=== PATIENT | female | born 1955 | race African-American/Black ===

== ENCOUNTER 2017-11-12 13:23 | Outpatient (RCR) | payer OTHER | END 2018-02-10 | disposition home or self-care (01) | LOC: WSOH | DX: M19.031 Primary osteoarthritis, right wrist (principal); M19.032 Primary osteoarthritis, left wrist; M79.641 Pain in right hand; M79.642 Pain in left hand; Z87.891 Personal history of nicotine dependence; Z79.899 Other long term (current) drug therapy ==

== ENCOUNTER 2020-07-21 11:34 | Emergency (ER) | payer MEDICARE ==
[~2020-07-21] VITALS: Ht 162.6 cm; Wt 90.0 kg
[2020-07-21 11:40] VITALS: TEMP 98.5
[2020-07-21] MEDS ORDERED: NORVASC 5MG5 MG/TAB PO (11:54)
[2020-07-21] MEDS ORDERED: PROFERRIN ES12 MG PO (11:54)
[2020-07-21] MEDS ORDERED: MASON NATURAL S1 CAP (11:55)
[2020-07-21 12:16] LABS: BASO % 0.5 % (0.0-2.0); EOS % 0.1 % (0-4.0); GRAN # 4.8 (1.4-6.5); GRAN % 63.1 % (42.2-75.2); HEMOGLOBIN 10.3 g/dl (12.5-16.0); LYMPH % 26.4 % (20.0-51.0); MEAN CELL VOLUME 78 fl (80.0-100.0); MEAN CORPUSCULAR HEMOGLOBIN 26 pg (27.0-31.0); MEAN CORPUSCULAR HGB CONC 33 g/dl (33.0-37.0); MEAN PLATELET VOLUME 10.7 fl (7.4-10.4); MONO # 0.7 (0.1-0.6); MONO % 9.5 % (1.7-9.3); PLATELET COUNT 569 K/mm3 (130-400); RED BLOOD COUNT 4.04 M/mm3 (4.10-5.30); REDCELL DISTRIBUTION WIDTH-CV 14.9 % (11.5-14.5)
[2020-07-21 12:25] LABS: HEMATOCRIT 31.6 % (37.0-47.0)
[2020-07-21 12:35] LABS: INR 1.2 (0.8-3.0); PROTHROMBIN TIME 13.3 SECONDS (9.7-12.8)
[2020-07-21 12:51] LABS: ALBUMIN 3.5 gm/dL (3.5-5.0); BILIRUBIN,TOTAL 0.5 mg/dL (0.0-1.0); CALCIUM 9.4 mg/dL (8.4-10.2); CREATININE, serum 0.73 (0.52-1.25); POTASSIUM 3.8 mmol/L (3.4-5.0); TOTAL PROTEIN 7.7 gm/dL (6.4-8.2)
[2020-07-21 15:44] VITALS: BP 134/91; PULSE 94
[2020-07-21 16:07] LABS: PERITONEAL -POLYMORPHONUCLEAR 11.8 % (0-25); PERITONEAL FLUID RBC 102000 /mm3 (0-0)
== END 2020-07-21 15:44 | disposition home or self-care (01) ==
LOC: COL.ER 11:34
PROVIDERS: Nurse Practitioner
DX: R18.8 Other ascites (principal)
CPT/HCPCS: 19804

== ENCOUNTER 2020-07-22 22:46 | Inpatient (IN) | payer MEDICARE ==
[~2020-07-22] VITALS: Ht 162.6 cm; Wt 90.0 kg
[~2020-07-22 22:46] MED LIST: MASON NATURAL S1 CAP; NORVASC 5MG5 MG/TAB PO; PROFERRIN ES12 MG PO
[2020-07-22 23:14] LABS: BASO % 0.4 % (0.0-2.0); EOS % 0.4 % (0-4.0); GRAN % 61.6 % (42.2-75.2); HEMOGLOBIN 10.9 g/dl (12.5-16.0); LYMPH # 2.4 (1.2-3.4); LYMPH % 29.5 % (20.0-51.0); MEAN CELL VOLUME 81 fl (80.0-100.0); MEAN CORPUSCULAR HEMOGLOBIN 25 pg (27.0-31.0); MEAN CORPUSCULAR HGB CONC 31 g/dl (33.0-37.0); MEAN PLATELET VOLUME 10.2 fl (7.4-10.4); MONO # 0.7 (0.1-0.6); PLATELET COUNT 582 K/mm3 (130-400); RED BLOOD COUNT 4.34 M/mm3 (4.10-5.30); REDCELL DISTRIBUTION WIDTH-CV 15.2 % (11.5-14.5)
[2020-07-22 23:33] LABS: ALBUMIN 3.5 gm/dL (3.5-5.0); BILIRUBIN,TOTAL 0.5 mg/dL (0.0-1.0); CALCIUM 9.2 mg/dL (8.4-10.2); CREATININE, serum 0.73 (0.52-1.25); POTASSIUM 3.7 mmol/L (3.4-5.0); TOTAL PROTEIN 7.5 gm/dL (6.4-8.2)
[2020-07-23] VITALS (17 sets, daily range): BP systolic 110–139; BP diastolic 60–82; PULSE 78–90; TEMP 98–98.6
--- NOTE | 2020-07-23 02:43 | NUR ---
Pt. transferred from Emergency department. Arrived to medical unit at about 0200. Pt. is A/O x4, VSS, no n/v/d. Pt. reports having no pain at this time. Pt. expresses no additional needs at this time. Call light within reach.
[2020-07-23 06:51] LABS: BASO % 0.4 % (0.0-2.0); EOS % 0.4 % (0-4.0); GRAN # 4.3 (1.4-6.5); GRAN % 61.3 % (42.2-75.2); LYMPH # 1.9 (1.2-3.4); LYMPH % 27.7 % (20.0-51.0); MEAN CELL VOLUME 81 fl (80.0-100.0); MEAN CORPUSCULAR HEMOGLOBIN 26 pg (27.0-31.0); MEAN CORPUSCULAR HGB CONC 32 g/dl (33.0-37.0); MONO # 0.7 (0.1-0.6); MONO % 9.9 % (1.7-9.3); PLATELET COUNT 501 K/mm3 (130-400); RED BLOOD COUNT 3.92 M/mm3 (4.10-5.30); REDCELL DISTRIBUTION WIDTH-CV 15.3 % (11.5-14.5)
[2020-07-23 06:57] LABS: HEMATOCRIT 31.7 % (37.0-47.0)
[2020-07-23 07:06] LABS: CALCIUM 8.7 mg/dL (8.4-10.2); CREATININE, serum 0.66 (0.52-1.25); POTASSIUM 3.7 mmol/L (3.4-5.0)
--- NOTE | 2020-07-23 08:00 | NUR ---
Shift assessment complete. Pt up in room independently, gait steady. Denies dizziness/SOA/nausea. A&ox4. Heart RRR. Lungs CTA. Abdomen soft and rounded, bowel sounds active all quadrants. Pt reports rebound tenderness across entire abdomen. Rates pain 4/10 at this time, declines pain meds. Continuing to monitor.
[2020-07-23 08:23] LABS: COLLECTION METHOD CLEAN CATCH
[2020-07-23 08:33] LABS: MUCOUS Present /lpf; PH 5 (5-8); SQUAMOUS EPITHELIAL 0-2 /hpf; URINE APPEARANCE Clear; URINE BACTERIA None Seen /hpf; URINE BILIRUBIN Negative (NEGATIVE); URINE BLOOD Negative (NEGATIVE); URINE COLOR Yellow; URINE GLUCOSE Negative (NEGATIVE); URINE KETONE Negative (NEGATIVE); URINE LEUKOCYTE ESTERASE Negative (NEGATIVE); URINE NITRATE Negative (NEGATIVE); URINE PROTEIN(semi-quant) Negative (NEGATIVE); URINE UROBILINOGEN Negative (NEGATIVE)
--- NOTE | 2020-07-23 12:50 | NUR ---
Initial visit; Joyce and Retail Leasing Agent had a good visit about Victor Manuel's will in our lives and she wanted to show Retail Leasing Agent her books and talk about God being in her life. She spoke of her terminal illness and said God has a plan for each of us and when she prayed and was rid of her fear, she became alright with letting God's plan take over. She wants prayer. Retail Leasing Agent let Joyce know she will continue to look in on her.
--- NOTE | 2020-07-23 13:40 | NUR ---
Pt down for biopsy at this time.
--- NOTE | 2020-07-23 13:50 | NUR ---
pt arrived via w/c to CT scanner from room 317, recieved dose of fentanyl 25mcg iv approx 1325.
--- NOTE | 2020-07-23 14:00 | NUR ---
Dr Calero here, speaks with pt, procedure started
--- NOTE | 2020-07-23 14:15 | NUR ---
specimans obtained and put in formulin by crescencio Montoya over site, pt up in w/c, no c/o, report called to floor nurse, and pt taken to room via w/c
--- NOTE | 2020-07-23 14:30 | NUR ---
Pt back in room at this time. Post-op vitals started. VSS. Bandaid over needle insertion site, CDI. Denies pain at this time. Continuing to monitor.
--- NOTE | 2020-07-23 15:51 | NUR ---
THERESE met with the patient, her son (Dieter Mcdowell, ph#[phone]), [id number], and sister to discuss discharge plan. The patient lives alone in [place]. Her sister lives in [place] and her son, Dieter, lives in [place]. She reports independence with ADLs and has a cane. She states that she takes showers over baths, so that she does not fall trying to get into the tub. She does not have a shower seat. THERESE informed the patient and her family on where she could obtain a shower seat. The patient states that she has not had a PCP, but that she has been set up with Dr. Becky Alfredo and her first appointment with the PA with Dr. Alfredo will be on July 27. She receives her medications from the [facility] in and through the mail. The patient does not have a DPOA-HC, but she was interested in obtaining a form and possibly completing it while here. She states that she is not and that she had two children: Dieter and Kp Noyola. The patient plans to return home upon discharge. She is interested in getting a quad cane and having insurance pay for it. She was agreeable to getting the cane from [facility]. THERESE contacted and faxed the quadcane order to Gisella at [facility]. The patient and her family were also interested in life alerts. THERESE provided the patient with brochures to the different life alerts and informed them of how [facility] [place] can provide a free consultation. The patient and her family verbalized understanding. THERESE also discussed home health and their benefits, but how home health may not be able to see the patient until she has her first appointment with the PA for Dr. Alfredo. The patient and her family verbalized understanding and was okay with that. They were interested in getting home health set up. THERESE provided the patient with Medicare.gov's list of home health agencies that serve [place]. The patient plans to look over the list. The patient has an ovarian mass and is to tentatively have a biopsy. Oncology has been consulted. SW to continue to follow. *Discharge plan: home with home health at this time*
[2020-07-24 00:08] VITALS: BP 120/58; PULSE 85; TEMP 98
[2020-07-24 04:15] VITALS: BP 126/65; PULSE 77; TEMP 98.1
--- NOTE | 2020-07-24 04:43 | NUR ---
Pt. expresses pain to abdomen, rates pain 5/10, Fentanyl 25mcg IV administered pt was repositioned and reminded to call nurse to ambulate. Will f/u. Call light within reach.
--- NOTE | 2020-07-24 06:01 | NUR ---
Pt. currently sitting up in bed, c/o pain to right arm, believes it may be due to sleeping on it. Nurse will conitnue to monitor. Pt. A/O x4, currently states she is free of n/v/d, does report constant pain to abdomen, ranges from 3 to 5 on pain scale. Pt. was repositioned and medicated Fentanyl 25MCG. Pt. currently expresses no additional needs at this time. Call light within reach.
[2020-07-24 07:58] VITALS: BP 120/66; PULSE 91; TEMP 97.7
[2020-07-24] MEDS ORDERED: ZOFRAN ODT4 MG PO (10:36)
[2020-07-24] MEDS ORDERED: LASIX 20MG TABL20 MG PO (10:36)
[2020-07-24 11:15] VITALS: BP 135/77; PULSE 99; TEMP 98.4
[2020-07-24] MEDS ORDERED: NORCO 325 MG-51 TAB PO ×2 (11:28)
--- NOTE | 2020-07-24 11:40 | NUR ---
[facility]ed [facility] care referral for patient DC. Contacted [facility] medical for patient's Quad cane delivery. Awaiting response. Patient indicated that she has some financial concerns. Educated on J.U. in financial. Called and left to contact patients. Lastly, patient concerned about bath chair. Educated on supports and talking with home health and [facility] home medical. Encouraged follow-up with PCP Dr. Becky Alfredo and her PA.
--- NOTE | 2020-07-24 11:47 | NUR ---
[facility] will call patient at her Cell number to facilitate patient obtained Quad Cane.
--- NOTE | 2020-07-24 12:10 | NUR ---
[facility] Can Admit on Sunday. [facility] could not admit until the following sunday.
--- NOTE | 2020-07-24 12:41 | NUR ---
Chaplain jeff and offered support with patient.
--- NOTE | 2020-07-24 14:02 | NUR ---
SW was called by [facility] On[facility] Guevara. Attempting to call Mrs. Noyola. Mrs. Noyola provided case planner with phone number [phone]. [facility] medical reports that they could not get a hold of her and that the number on her face sheet is not correct either. Unsure of next course of action will refer to deployment manager.
== END 2020-07-24 13:55 | disposition home health service (06) | DRG 760 ==
LOC: COL.ER 22:46 → MEDICAL 07-23 00:16
PROVIDERS: Emergency Medicine; Nurse Practitioner Family; ADMIT Hospitalist
PROC: 0DBU3ZX Excision of Omentum, Percutaneous Approach, Diagnostic (ICD-10-PCS; principal; 2020-07-23)
DX: N83.9 Noninflammatory disorder of ovary, fallopian tube and broad ligament, unspecified (principal); E87.1 Hypo-osmolality and hyponatremia; C78.7 Secondary malignant neoplasm of liver and intrahepatic bile duct; C78.6 Secondary malignant neoplasm of retroperitoneum and peritoneum; R18.0 Malignant ascites; I10 Essential (primary) hypertension; D64.9 Anemia, unspecified; D47.3 Essential (hemorrhagic) thrombocythemia; E87.8 Other disorders of electrolyte and fluid balance, not elsewhere classified; G43.909 Migraine, unspecified, not intractable, without status migrainosus; R13.10 Dysphagia, unspecified; R63.4 Abnormal weight loss; R53.81 Other malaise; Z86.16 Personal history of COVID-19; Z87.891 Personal history of nicotine dependence
CPT/HCPCS: 99222-AI; 99239; J3010; Q9967

== ENCOUNTER → 2020-08-02 | Outpatient (CLI) | payer MEDICARE ==
[~2020-08-02] VITALS: Ht 162.6 cm; Wt 83.0 kg
[~2020-08-02] MED LIST changes: +LASIX 20MG TABL20 MG PO; +NORCO 325 MG-51 TAB PO; +ZOFRAN ODT4 MG PO
[2020-08-02 10:26] VITALS: BP 147/90; PULSE 90
[2020-08-02 12:06] VITALS: BP 146/86; PULSE 85
--- NOTE | 2020-08-30 13:28 | NUR ---
PATIENT PASSES WAWAY ON 08/25/20 AT HER HOME
== END ==
LOC: COL.RAD 10:07
DX: N83.8 Other noninflammatory disorders of ovary, fallopian tube and broad ligament (principal); R18.0 Malignant ascites; R14.0 Abdominal distension (gaseous)
CPT/HCPCS: 19804

== ENCOUNTER 2020-08-10 13:06 | Day surgery (SDC) | payer MEDICARE ==
[~2020-08-10] VITALS: Ht 162.6 cm; Wt 79.8 kg
[2020-08-10 13:47] VITALS: BP 132/94; PULSE 124; TEMP 97.6
--- NOTE | 2020-08-10 14:07 | NUR ---
[place] CRNA was notified of the patient's increased heart rate while at rest. She does sound regular in rhythm upon auscultation. He verbalized understanding and an order for an EKG was obtained.
--- NOTE | 2020-08-10 14:09 | NUR ---
Respiratory therapy was notified of the patient's new order for an EKG. They verbalized understanding and will come to [place] [facility] to complete the EKG.
--- NOTE | 2020-08-10 14:25 | NUR ---
Respirtatory therapy has been at the patient's bedside to complete the EKG as ordered. Will continue to monitor the patient.
[2020-08-10 16:03] VITALS: BP 149/90; PULSE 103; TEMP 98
--- NOTE | 2020-08-10 16:03 | NUR ---
The patient arrived back to [place] [facility] from the operating room at this time. The patient appears drowsy but arouses easily to her name. The patient started coughing and brought up a moderate amount of green emesis. Wall suction was set up and the patient was shown how to use the yanker for future needs. The patient's dressing to her left neck appears clean, dry and intact. The patient's gauze dressing got dirty with the emesis and was changed at this time. Post procedure vital signs were started at this time. The patient agrees to try some apple juice. The patient's friend, Adela, is at her bedside. Call light is within reach. Will continue to monitor the patient.
[2020-08-10] MEDS ORDERED: NORCO 325 MG-51 TAB PO ×2 (16:12→17:59)
[2020-08-10 16:18] VITALS: BP 138/94; PULSE 103
--- NOTE | 2020-08-10 16:18 | NUR ---
The patient appears to be tolerating the juice well. The patient denies any pain or nausea at this time. Vital signs appear stable. Will continue to monitor the patient.
[2020-08-10 16:33] VITALS: BP 138/96; PULSE 100
--- NOTE | 2020-08-10 16:33 | NUR ---
The patiennt appears to be resting quietly on the cart with her eyes closed at this time. Respirations even and unlabored. Will continue to montior the patient.
[2020-08-10 16:48] VITALS: BP 136/91; PULSE 95
--- NOTE | 2020-08-10 16:50 | NUR ---
Discharge instructions were reviewed with the patient and her friend at this time. They both verbalized understanding and have no questions for the nurse at this time. The patient's IV to her right hand was removed and a pressure dressing was applied to the site. The nurse sent the patient's friend to pull the car up while the nurse assists the patient to get dressed.
--- NOTE | 2020-08-10 17:05 | NUR ---
The patient was escorted out via wheelchair to a private vehicle by MARIAM Simmons. The patient's belongings and discharge papework were sent with her. The patient's friend, Adela, is present to drive her home.
== END 2020-08-10 17:05 | disposition home or self-care (01) ==
LOC: SDCO 13:06
DX: Z45.2 Encounter for adjustment and management of vascular access device (principal); C56.2 Malignant neoplasm of left ovary; C78.7 Secondary malignant neoplasm of liver and intrahepatic bile duct; C78.6 Secondary malignant neoplasm of retroperitoneum and peritoneum; I10 Essential (primary) hypertension; M19.90 Unspecified osteoarthritis, unspecified site; D64.9 Anemia, unspecified; N39.0 Urinary tract infection, site not specified; F17.210 Nicotine dependence, cigarettes, uncomplicated; Z79.899 Other long term (current) drug therapy
CPT/HCPCS: C1788; J0690; J1644; J2704; J3010; J7120

== ENCOUNTER 2020-08-14 11:13 | Emergency (ER) | payer MEDICARE ==
[~2020-08-14] VITALS: Ht 162.6 cm; Wt 79.5 kg
[2020-08-14 11:21] VITALS: TEMP 98
[2020-08-14 14:55] VITALS: BP 123/75; PULSE 89
== END 2020-08-14 14:55 | disposition home or self-care (01) ==
LOC: COL.ER 11:13
DX: R18.8 Other ascites (principal); N83.291 Other ovarian cyst, right side; I10 Essential (primary) hypertension
CPT/HCPCS: J2270